=== PATIENT | male | born 1955 | race Caucasian/White ===

== ENCOUNTER → 2016-04-27 | Outpatient (CLI) | payer BC ==
[~2016-04-27] MED LIST: ROPIVACAINE 1% 10 MG/ML (NAROPIN) 10 ML AMPUL ONE; SODIUM CHLORIDE VIAL (PF) 10 ML IV ONE
== END ==
LOC: PMC 07:43
PROVIDERS: ATTEND Neurological Surgery
PROC: 3E0T33Z Introduction of Anti-inflammatory into Peripheral Nerves and Plexi, Percutaneous Approach (ICD-10-PCS; principal; 2016-04-27)
PROC: BR16ZZZ Fluoroscopy of Lumbar Facet Joint(s) (ICD-10-PCS; 2016-04-27)
DX: M47.817 Spondylosis without myelopathy or radiculopathy, lumbosacral region (principal)